=== PATIENT | female | born 1980 | race Caucasian/White ===

== ENCOUNTER 2017-06-14 18:18 | Emergency (ER) | payer OTHER ==
[2017-06-14] MEDS: ONDANSETRON ODT 4 MG TAB.RAPDIS. PO (19:14)
[2017-06-14] MEDS: CYCLOBENZAPRINE 10 MG TABLET. PO (19:14)
[2017-06-14] MEDS: HYDROcodone/APAP 5/325MG 1 TAB TABLET PO (19:14)
== END 2017-06-14 20:38 | disposition home or self-care (01) ==
LOC: ER 20:38
DX: S13.9XXA Sprain of joints and ligaments of unspecified parts of neck, initial encounter (principal); S60.222A Contusion of left hand, initial encounter; S60.012A Contusion of left thumb without damage to nail, initial encounter; S00.511A Abrasion of lip, initial encounter; M79.622 Pain in left upper arm; J45.909 Unspecified asthma, uncomplicated; G43.909 Migraine, unspecified, not intractable, without status migrainosus; Z88.0 Allergy status to penicillin; V43.52XA Car driver injured in collision with other type car in traffic accident, initial encounter; Y93.I9 Activity, other involving external motion; Y92.410 Unspecified street and highway as the place of occurrence of the external cause; Y99.8 Other external cause status
CPT/HCPCS: 29125; 70486; 72125; 73060; 73130; 99284-25; Q0162